=== PATIENT | female | born 1935 | race Caucasian/White ===

== ENCOUNTER 2016-11-26 20:59 | Inpatient (IN) | payer MEDICARE ==
[~2016-11-26] VITALS: Ht 167.6 cm; Wt 66.2 kg
[2016-11-26 23:48] LABS: BASOPHILS 0.2 % (0.0-2.0); EOSINOPHILS 0.1 % (0-7); HEMOGLOBIN 13.1 g/dL (12-16); IMMATURE GRANULOCYTES 0.3 % (0-5); LYMPHOCYTES 8.4 % (15-50); MCH 31.6 pg (26.0-34.0); MCHC 33.6 g/dL (31.0-37.0); MEAN PLATELET VOLUME 9.9 fL (7.4-10.4); MONOCYTES 4.7 % (2-11); NEUTROPHILS 86.3 % (40-80); PLATELET COUNT 134 10x3/uL (130-400); RBC 4.15 10x6/uL (4.00-5.40); RDW 13.3 % (11.5-14.5); WBC 11.4 10x3/uL (4.8-10.8)
[2016-11-27] VITALS (13 sets, daily range): BP systolic 110–135; BP diastolic 44–88; BMI 23.6
[2016-11-27 00:01] LABS: APTT 27.9 SECONDS (22.8-39.4); INR 0.97 (0.85-1.17); PROTIME 12.7 SECONDS (11.6-15.0)
[2016-11-27 00:04] LABS: ALBUMIN 3.8 g/dL (3.4-5.0); ANION GAP 12.4 mmol/L (8-16); BILIRUBIN - TOTAL 0.94 mg/dL (0.2-1.3); CALCIUM 8.8 mg/dL (8.5-10.1); CARBON DIOXIDE 25.6 mmol/L (21.0-32.0); CREATININE - SERUM 0.9 mg/dL (0.6-1.3); PROTEIN - SERUM 6.9 g/dL (6.4-8.2)
[2016-11-27] MEDS ORDERED: SYNTHROID25 MCG PO (01:04)
[2016-11-27] MEDS ORDERED: VITAMIN B-1000 MCG/M IM (01:07)
--- NOTE | 2016-11-27 08:13 | NUR ---
AWAKE AND ALERT. ORIENTED X3. C/O SOME NAUSEA AT THIS TIME. GIVEN 4 MG ZOFRAN SLOW IVP FOR SAME. WILL MONITOR. LUNGS ARE CLEAR BILATERALLY, NO COUGH NOTED. SKIN IS INTACT WIHTOUT REDNESS. IV TO RIGHT AC PATENT WITHOUT REDNESS AT INSERTION SITE. REPORTS PAIN UNDER CONTROL AT THIS TIME. DENIES NEEDS.
--- NOTE | 2016-11-27 09:45 | NUR ---
PT REFUSES SCD R/T NEUROPATHY PAIN
--- NOTE | 2016-11-27 09:45 | NUR ---
OFF UNIT VIA BED TO SURGERY.
--- NOTE | 2016-11-27 10:46 | NUR ---
PT REFUSES SCD R/T NEUROPATHY PAIN
--- NOTE | 2016-11-27 11:57 | NUR ---
XRAY DONE AT BEDSIDE
--- NOTE | 2016-11-27 12:20 | NUR ---
RETURNED FROM PACU. A/O X3. NO C/O AT THIS TIME. DRESSING TO RIGHT HIP DRY AND INTACT.
--- NOTE | 2016-11-27 13:40 | NUR ---
VSS. NOT WANTING TO EAT AT THIS TIME. FAMILY AT BEDSIDE.
--- NOTE | 2016-11-27 14:15 | NUR ---
ATE ABOUT HALF OF LUNCH TRAY WITHOUT ANY NAUSEA. VSS. DENIES NEEDS.
--- NOTE | 2016-11-27 16:00 | NUR ---
IV TO RIGHT AC CONTINUES TO BEEP OCCLUDED. LEFT PORT ACCESSED AFTER ONE ATTEMPT USING STERILE TECHNIQUE WITH GOOD BLOOD RETURN.
--- NOTE | 2016-11-27 16:31 | NUR ---
IV TO RIGHT AC D/C WITH CATHETER INTACT.
--- NOTE | 2016-11-27 18:35 | NUR ---
PATIENT UNABLE TO VOID USEING BEDPAN. BLADDER SCANNER SHOWED AERO BUT FLUID COULD BE PALPATED IN BLADDER. 16 F SILVA PLACED USING STERILE TECHNIQUE. CONTENTS OF ENTIRE KIT UTILIZED. 200cc CLEAR YELLOW URINE RETURNED.
--- NOTE | 2016-11-27 20:47 | NUR ---
PT LAYING IN BED NO DISTRESS OBSERVED CALL LIGHT IN REACH SRX2 BED LOW AN LOCKED PT RATES PAIN AT A 2-3 ON SCALE OF 10. DILAUDID FIELD CANE SCALER HELPER INFUSING TO LEFT CHEST PORT WITH NS @ 75 WILL MONITOR
[2016-11-28 02:00] VITALS: BP 122/62
[2016-11-28 05:00] VITALS: BP 111/75
[2016-11-28 05:30] LABS: HEMATOCRIT 31.4 % (36.0-48.0); MCH 30.7 pg (26.0-34.0); MCHC 32.5 g/dL (31.0-37.0); MCV 94.6 fL (80.0-100.0); MEAN PLATELET VOLUME 9.9 fL (7.4-10.4); RBC 3.32 10x6/uL (4.00-5.40); RDW 13.4 % (11.5-14.5)
[2016-11-28 05:40] LABS: HEMOGLOBIN 10.2 g/dL (12-16); WBC 7.7 10x3/uL (4.8-10.8)
--- NOTE | 2016-11-28 07:55 | NUR ---
PT. ASLEEP ON BACK IN BED. AWAKENS EASILY TO VERAL STIMULI. AAOX4. RESP. EVEN AND NONLABORED LUNG SOUNDS CLEAR WITH NO COUGH NOTED. INCENTIVE SPIROMETER TEACHING AND RETURN DEMONSTRATION DONE BY PT. SKIN CLEAN DRY AND INTACT WITH NO REDNESS OR EDEMA PRESENT. LEFT PORT ACCESS CLEAN DRY AND INTACT WITH NO REDNESS AT OR AROUN SITE. ICE PACK PLACED ON RIGHT HIP DRESSING THAT IS CLEAN DRY AND INTACT WITH NO REDNESS OR SWELLING AT OR AROUND SITE. BED IN LOWEST SITTING WITH SR X 2 AND CALL LIGHT WITHIN REACH. PT. DENIES ANY NEEDS AT THIS TIME.
[2016-11-28 08:52] VITALS: BP 107/61
--- NOTE | 2016-11-28 10:22 | NUR ---
Rehab Prescreening Consult recieved and the chart has been recviewed. She is a good rehab candidate, but has not had any therapy yet. Rehab will follow her progress. Carmen Vines RN Clinical Liaison, Rehab
[2016-11-28 12:32] VITALS: BP 131/69
[2016-11-28 14:30] VITALS: Ht 167.6 cm; Wt 66.2 kg
--- NOTE | 2016-11-28 14:37 | NUR ---
All information faxed to [facility] for inpatient rehab authorization. Ref# [id number] Carmen Vines RN CL
[2016-11-28 15:32] VITALS: BP 125/78
--- NOTE | 2016-11-28 20:15 | NUR ---
LYING IN BED AWAKE, ASSESSMENT COMPLETED, NO ACUTE DISTRESS NOTED, DENIES PAIN OR NEEDS,CONTINUES TO REFUSE SCD'S , SR'S UP X2, CL IN REACH, WILL MONITOR
[2016-11-28 21:00] VITALS: BP 117/60
--- NOTE | 2016-11-28 21:14 | NUR ---
MEDS GIVEN PER MAR, EARL WELL, DENIES NEEDS, CL IN REACH
--- NOTE | 2016-11-28 23:50 | NUR ---
PEPCID AND TYLENOL GIVEN PER MAR, EARL WELL, DENIES NEEDS, SR'S UP, CL IN REACH
[2016-11-29 01:00] VITALS: BP 124/66
[2016-11-29 05:00] VITALS: BP 129/71
[2016-11-29 05:35] LABS: HEMATOCRIT 29.2 % (36.0-48.0); HEMOGLOBIN 9.6 g/dL (12-16); MCHC 32.9 g/dL (31.0-37.0); MCV 94.2 fL (80.0-100.0); MEAN PLATELET VOLUME 10.1 fL (7.4-10.4); RBC 3.1 10x6/uL (4.00-5.40); RDW 13.7 % (11.5-14.5); WBC 5.9 10x3/uL (4.8-10.8)
--- NOTE | 2016-11-29 07:40 | NUR ---
AWAKE AND ALERT AT THIS TIME. DRESSING TO RIGHT HIP C/D/I. INSTRUCTED PT ON USE OF INCENTIVE SPIROMETER AND PT DEMONSTRATED UNDERSTANDING WITH 1,000ML OF INSPIRATORY VOLUME. PROVIDED WITH FRESH ICE WATER. PT REFUSES SCD'S. BED ALARM ON AND SRX2 WITH BED IN LOWEST POSITION AND LOCKED. ASSESSMENT PERFORMED PER FLOWSHEET. CALL LIGHT IN REACH, WILL CONTINUE WITH PLAN OF CARE.
[2016-11-29] MEDS ORDERED: HYDROCODONE-APA1 TAB PO (08:23)
[2016-11-29] MEDS ORDERED: ONDANSETRON4 MG/2 M3 PO (08:23)
[2016-11-29 08:33] VITALS: BP 130/72
--- NOTE | 2016-11-29 10:33 | NUR ---
CM REASSESSMENT NOTE: PATIENT HAS BEEN ACCEPTED TO [facility] IN [facility] AND WILL BE IN A SKILLED BED. PATIENT WILL TRANSPORT BY AMBULANCE. FAMILY (SISTER) HAS BEEN NOTIFIED.
--- NOTE | 2016-11-29 11:25 | NUR ---
SCHEDULED TYLENOL ADMINISTERED AT THIS TIME. LEFT CHEST PORT SALINE LOCKED PER ORDER. SILVA CATHETER D/C WITH CATH TIP INTACT. PT TOLERATED WITHOUT COMPLAINTS. BED ALARM ON, CALL LIGHT IN REACH. WILL CONTINUE WITH PLAN OF CARE.
[2016-11-29 12:08] VITALS: BP 132/76
--- NOTE | 2016-11-29 13:15 | NUR ---
VOIDED 350ML IN THE BEDSIDE COMMODE WITHOUT DIFFICULTY AT THIS TIME.
--- NOTE | 2016-11-29 14:20 | NUR ---
REPORT CALLED TO WILLOW COLÓN AT [facility], . LEFT CHEST PORT DE-ACCESSED AND DRESSING TO RIGHT HIP CHANGED IN STERILE FASHION AND NEW AQUACEL AG DRESSING APPLIED. PT DENIES QUESTIONS OR CONCERNS. WILL CONTINUE TO MONITOR UNTIL PT US PICKED UP BY EMS.
[2016-11-29 15:17] VITALS: BP 119/71
--- NOTE | 2016-11-29 15:30 | NUR ---
D/C VIA EMS AT THIS TIME.
--- NOTE | 2016-12-06 12:19 | OP ---
PATIENT NAME: CRYSTAL LOWRY MEDICAL RECORD: [id number] :37 LOCATION:[id number] ADMISSION DATE:11/26/16 SURGEON: AL BERMUDEZ MD DATE OF OPERATION: 11/26/2016 PREOPERATIVE DIAGNOSIS: Right femoral neck fracture. POSTOPERATIVE DIAGNOSIS: Right femoral neck fracture. PROCEDURE PERFORMED: Right hip hemiarthroplasty. SURGEON: Ye Bermudez MD ANESTHESIA: General with a block for postop pain. CONDITION: The patient tolerated the procedure well, was transferred to the recovery room in stable condition at the termination of the procedure. INDICATIONS: This is a 81-year-old female that fell yesterday. She had pain ____. When she was able to do this, she called, was found, delivered to the hospital by EMS and noted to have a femoral neck fracture. We discussed the options with her. She wanted to go ahead and have this surgically repaired. We discussed risks, benefits, and alternatives. She understood and wished to proceed. OPERATIVE REPORT: The patient was taken to the operating room, placed in supine position. A general anesthesia was obtained. She did have a block placed preoperatively. Once this was accomplished, she was placed in a lateral position with her right hip up. Procedure was begun by prepping and draping her in the standard fashion. She then had a secondary ChloraPrep and Ioban dressing placement. I followed this by lateral incision. This was taken down to the IT band. The IT band was split. Charnley retractor was placed. I took off the anterior portion of the gluteus medius and the capsule as a unit. The femoral neck had a cleanup cut. This was accomplished and the remnants of the femoral head were removed from the cup. These were measured for size and found to be a 46. After this, I copiously irrigated the acetabulum then took the leg off the side of the bed into the bag. I did a cookie cutter and canal finder followed by broaching up to a 13 for the stem. A 13 trial stem was placed with the standard head and neck. X-rays were taken this appeared to be slightly long, not very much, but enough that I went ahead and took this out. I did my final with 13 stem with a -3 head and neck. This felt very stable on the table. The soft tissue tension felt appropriate. I therefore copiously irrigated, then placed 2 JuggerKnot suture anchors ____ gluteus medius and the capsule back as a unit to the trochanter. I then proceeded to irrigated further. I then closed the IT band with a #1 barbed PDS. I then closed with 2-0 Vicryl, then gaby. She was placed in soft dressing, awakened and transferred to the recovery room in stable condition, having tolerated procedure well. TRANSINT:[id number] Voice Confirmation ID: [id number] DOCUMENT ID: [id number] OPERATIVE REPORT [id number] CRYSTAL LOWRY, AL FLOWERS MD at 1219 CC: [id number] DICTATION DATE: 11/27/16 1202 SOCIAL WORKER MASTERS: 11/27/16 1307 DIS IN 11/29/16 [facility] [address] [place] [address]
--- NOTE | 2016-12-23 07:08 | DS ---
PATIENT:CRYSTAL LOWRY :39 MEDICAL RECORD: [id number] DISCHARGE SUMMARY ADMISSION DATE: 11/26/16 DISCHARGE DATE: 11/29/16 DATE OF ADMISSION: 11/26/2016 DATE OF DISCHARGE: 11/29/2016 ADMITTING DIAGNOSIS: Right hip femoral neck fracture. DISCHARGE DIAGNOSIS: Right hip femoral neck fracture. PROCEDURE PERFORMED DURING THE HOSPITALIZATION: Right hip hemiarthroplasty. ADMITTING PHYSICIAN: Ye Walters MD. HISTORY OF PRESENT ILLNESS: This is a 81-year-old who fell, fractured her femoral neck and displaced. She was taken to the operating room where she underwent a hemiarthroplasty. She did quite well with this, we were able to at least get her up into a chair, start some initial ambulation or some initial therapy attempts. It was felt by the she can be discharged back to the [facility]. She ____ going to continue on some anticoagulation therapy, continue on ____ at least mobilize her even with just bed to chair and see us back in the office in 2-3 weeks. TRANSINT:[id number] Voice Confirmation ID: [id number] DOCUMENT ID: [id number] AL WALTERS MD at 0708 CC: [id number] DICTATION DATE: 12/20/16 170 [employer] PRESIDENT PHARMACY: 12/21/16 1133 DIS IN 11/29/16 [facility] [address] [place] [address]
== END 2016-11-29 15:30 | DRG 470 ==
LOC: D.ER 20:59 → D.MS 23:30
PROVIDERS: Nurse Practitioner Acute Care; ADMIT Orthopaedic Surgery Sports Medicine
PROC: 0SRR0JZ Replacement of Right Hip Joint, Femoral Surface with Synthetic Substitute, Open Approach (ICD-10-PCS; principal; 2016-11-26)
DX: S72.001A Fracture of unspecified part of neck of right femur, initial encounter for closed fracture (principal); W19.XXXA Unspecified fall, initial encounter

== ENCOUNTER 2019-02-27 18:54 | Inpatient (IN) | payer MEDICARE ==
[~2019-02-27 18:54] MED LIST: HYDROCODONE-APA1 TAB PO; ONDANSETRON4 MG/2 M3 PO; SYNTHROID25 MCG PO; VITAMIN B-1000 MCG/M IM
[2019-02-27 20:09] LABS: APPEARANCE CLEAR (CLEAR); BILIRUBIN NEGATIVE (NEGATIVE); COLOR YELLOW (YELLOW); GLUCOSE NEGATIVE (NEGATIVE); KETONE SMALL mg/dL (NEGATIVE); NITRITE NEGATIVE (NEGATIVE); PROTEIN NEGATIVE (NEGATIVE); UROBILINOGEN NORMAL (NORMAL)
[2019-02-27 20:33] LABS: BASOPHILS 0.2 % (0-2); EOSINOPHILS 0.6 % (0-7); HEMATOCRIT 39.3 % (36.0-48.0); HEMOGLOBIN 13.5 g/dL (12-16); IMMATURE GRANULOCYTES 0.2 % (0-5); LYMPHOCYTES 16.2 % (15-50); MCH 31.8 pg (26.0-34.0); MCHC 34.4 g/dL (31.0-37.0); MCV 92.7 fL (80.0-100.0); MEAN PLATELET VOLUME 9.5 fL (7.4-10.4); MONOCYTES 6.2 % (2-11); NEUTROPHILS 76.6 % (40-80); RBC 4.24 10x6/uL (4.00-5.40); RDW 13.4 % (11.5-14.5)
[2019-02-27 20:58] LABS: ALBUMIN 3.9 g/dL (3.4-5.0); ANION GAP 11.6 mmol/L (8-16); BILIRUBIN - TOTAL 1.06 mg/dL (0.2-1.3); CARBON DIOXIDE 28.7 mmol/L (21.0-32.0); CREATININE - SERUM 0.9 mg/dL (0.6-1.3); POTASSIUM - SERUM 4.3 mmol/L (3.5-5.1); PROTEIN - SERUM 7.4 g/dL (6.4-8.2)
[2019-02-27 21:05] LABS: PLATELET COUNT 149 10x3/uL (130-400)
[2019-02-27 23:27] VITALS: BP 166/77
--- NOTE | 2019-02-27 23:35 | NUR ---
CEFOXITINE NOT IN OUR PYXIS. CALLED INDUSTRIAL MANUFACTURING TECHNICIAN. WILL GIVE MEDICATION WHEN IT ARRIVES.
[2019-02-28] VITALS (10 sets, daily range): BP systolic 109–145; BP diastolic 48–76; BMI 26.2; BMI 26.1
--- NOTE | 2019-02-28 00:50 | NUR ---
PT ARRIVED TO THE FLOOR. ALERT AND ORIENTED. NO SIGNS OF DISTRESS. BREATHING EVEN AND ULABORED. NG TUBE LT NARE LOW SUCTION. WILL CONTINUE PLAN OF CARE. CALL LIGHT IN REACH.
[2019-02-28 05:06] LABS: BASOPHILS 0.1 % (0-2); EOSINOPHILS 0.3 % (0-7); HEMATOCRIT 37.3 % (36.0-48.0); HEMOGLOBIN 12.7 g/dL (12-16); IMMATURE GRANULOCYTES 0.3 % (0-5); LYMPHOCYTES 14.8 % (15-50); MCH 31.5 pg (26.0-34.0); MCV 92.6 fL (80.0-100.0); MEAN PLATELET VOLUME 9.7 fL (7.4-10.4); MONOCYTES 3.6 % (2-11); NEUTROPHILS 80.9 % (40-80); PLATELET COUNT 148 10x3/uL (130-400); RBC 4.03 10x6/uL (4.00-5.40); RDW 13.5 % (11.5-14.5); WBC 7.6 10x3/uL (4.8-10.8)
[2019-02-28 05:36] LABS: ALBUMIN 3.4 g/dL (3.4-5.0); ANION GAP 13.1 mmol/L (8-16); BILIRUBIN - TOTAL 0.98 mg/dL (0.2-1.3); CALCIUM 8.5 mg/dL (8.5-10.1); CARBON DIOXIDE 25.4 mmol/L (21.0-32.0); POTASSIUM - SERUM 4.5 mmol/L (3.5-5.1); PROTEIN - SERUM 6.3 g/dL (6.4-8.2)
--- NOTE | 2019-02-28 07:58 | NUR ---
PT IS RESTING IN BED WITH EYES CLOSED. RESPIRATIONS ARE EVEN AND UNLABORED. NG TUBE TO LEFT NARE SET TO LOW INTERMITTENT SUCTION. NG TUBE SECURED TO LEFT NARE. DARK BROWN FLUID NOTED IN NG TUBE COLLECTION CANISTER. PT DENIES PRESENCE OF NAUSEA/VOMITING AT THIS TIME. PT BS ACITVE X 4 QUADRANTS. PT REPORTS THAT SHE HAS PASSED "A LITTLE BIT" OF GAS. PT DENIES FURTHER NEEDS AT THIS TIME. BED IS IN THE LOWEST POSITION. CALL LIGHT AND BEDSIDE TABLE ARE WITHIN REACH. SIDE RAILS X 2. WILL CONT TO MONITOR.
--- NOTE | 2019-02-28 09:25 | NUR ---
PT C/O CHEST PAIN. PT DENIES PRESENCE OF SOB. PT DENIES PRESENCE OF NAUSEA. MADHURI MATOS NOTIFIED. TELEPHONE ORDERS RECD ARE CARDIAC ENZYMES AND EKG. WILL PLACE ORDERS. WILL CONT TO MONITOR PT CLOSELY.
--- NOTE | 2019-02-28 10:00 | NUR ---
PT REPORTS CHEST PAIN HAS SUBSIDED AND REPORTS ABDOMINAL DISCOMFORT. EKG IN PT CHART. PT DENIES FURTHER NEEDS. WILL CONT TO MONITOR.
--- NOTE | 2019-02-28 10:35 | NUR ---
CONSENTS SIGNED BY PT FOR LAP HERNIA REPAIR. PT DENIES FURTHER QUESTIONS AND/OR CONCERNS AT THIS TIME. SIGNED CONSENTS PLACED IN PT CHART.
--- NOTE | 2019-02-28 11:30 | NUR ---
PT IS RESTING IN BED WITH EYES CLOSED. RESPIRATIONS ARE EVEN AND UNLABORED. FAMILY MEMBER AT BEDSIDE. BED IS IN THE LOWEST POSITION. CALL LIGHT AND BEDSIDE TABLE ARE WITHIN REACH. SIDE RAILS X2. WILL CONT TO MONITOR.
[2019-02-28 12:09] LABS: CKMB 2.1 U/L (0.0-3.6); CREATINE KINASE 123 UL (21-215)
[2019-02-28 12:17] LABS: TROPONIN-I < 0.017 ng/mL (0.000-0.060)
--- NOTE | 2019-02-28 13:04 | NUR ---
NG TUBE FELL OUT OF PT LEFT NARE WHILE AMBULATING FROM BEDSIDE COMMODE TO BED.
--- NOTE | 2019-02-28 13:22 | NUR ---
16 FR NG TUBE INSERTED TO LEFT NARE. PT TOLERATED WELL. ORDER PLACED FOR PLACEMENT CHECK. WILL WAIT FOR VERIFICATION.
--- NOTE | 2019-02-28 15:59 | NUR ---
PRE OP MEDS GIVEN PER ORDER. SEE EMAR. PT TRANSPORTED OUT OF ROOM FOR PROCEDURE VIA BED BY HOSPITAL STAFF.
--- NOTE | 2019-02-28 18:06 | NUR ---
PT RETURNS TO ROOM VIA BED. PT IS SLEEPY BUT IS AROUSABLE WITH VERBAL STIMULATION. FAMILY IS AT BEDSIDE. VSS. SEE FLOWSHEET. LAP SITES X 4. 3 LAP SITES TO RIGHT ABDOMEN 1 LAP SITE TO LLQ. DRESSINGS ARE C/D/I. BED IS IN THE LOWEST POSITION. CALL LIGHT AND BEDSIDE TABLE ARE WITHIN REACH. SIDE RAILS X 2. WILL CONT TO MONITOR.
[2019-03-01 03:05] VITALS: BP 116/62
--- NOTE | 2019-03-01 03:41 | NUR ---
I have reviewed this patient and I concur with the Shift Assessment completed by the Licensed Practical Nurse today this shift.
[2019-03-01 06:13] VITALS: BP 125/59; BP 173/74
[2019-03-01 07:17] LABS: BASOPHILS 0.1 % (0-2); EOSINOPHILS 0.7 % (0-7); HEMATOCRIT 35.1 % (36.0-48.0); HEMOGLOBIN 11.7 g/dL (12-16); IMMATURE GRANULOCYTES 0.1 % (0-5); LYMPHOCYTES 18.2 % (15-50); MCH 31.4 pg (26.0-34.0); MCHC 33.3 g/dL (31.0-37.0); MCV 94.1 fL (80.0-100.0); MEAN PLATELET VOLUME 9.6 fL (7.4-10.4); MONOCYTES 11.2 % (2-11); NEUTROPHILS 69.7 % (40-80); PLATELET COUNT 145 10x3/uL (130-400); RBC 3.73 10x6/uL (4.00-5.40); RDW 13.6 % (11.5-14.5); WBC 7.2 10x3/uL (4.8-10.8)
--- NOTE | 2019-03-01 07:20 | NUR ---
PATIENT RESTING COMFORTABLY. CONVERSANT. NO COMPLAINTS. ALL NEEDS MET AT THIS TIME.
[2019-03-01 07:31] LABS: ANION GAP 10.4 mmol/L (8-16); CALCIUM 7.8 mg/dL (8.5-10.1); CARBON DIOXIDE 27.5 mmol/L (21.0-32.0); CREATININE - SERUM 1.1 mg/dL (0.6-1.3); MAGNESIUM - SERUM 2.2 mg/dL (1.8-2.4); POTASSIUM - SERUM 3.9 mmol/L (3.5-5.1)
[2019-03-01 09:05] VITALS: BP 128/62
--- NOTE | 2019-03-01 12:00 | MORECARE ---
CASE MANAGEMENT DISCHARGE SUMMARY PATIENT: CRYSTAL LOWRY UNIT: [id number] ADM DATE: 02/27/19 AGE: 83 : 37 SEX: F ROOM/BED: D.2228 AUTHOR: MENA NORMAN PHYSICIAN: REFERRING PHYSICIAN: JAH GONGORA MD DATE OF SERVICE: 03/01/19 Discharge Plan Patient Name: CRYSTAL LOWRY [facility] [facility] 1935 Planned Disposition: Home Anticipated Discharge Date: Discharge Date: Expected LOS: Initial Reviewer: [email or web address] Initial Review Date: 03/01/2019 Generated: 03/01/19 1:00 pm DCPIA - Discharge Planning Initial Assessment Updated by [email or web address]: Roberta Donis on 03/01/19 11:59 am * Is the patient Alert and Oriented? Yes * How many steps to enter\exit or inside your home? 0/2 * PCP Dr. Jamil Hu in [place] * Pharmacy [facility] in [place] * Preadmission Environment Home Alone * ADLs Partial Dependent * Partial ADLs (Assistance needed) Ambulation * Equipment Bedside Commode Rolling Walker Shower Chair * List name and contact numbers for known caregivers / representatives who currently or will assist patient after discharge: [facility] - [phone] * Verbal permission to speak to the caregivers and representatives has been obtained from the patient. Yes * Community resources currently utilized None * Additional services required to return to the preadmission environment? No * Can the patient safely return to the preadmission environment? Yes * Has this patient been hospitalized within the prior 30 days at any hospital? No Patient Name: CRYSTAL LOWYR Page [id number] at 1200 All edits/amendments must be made on the electronic document DICTATION DATE: 03/01/19 1159 [place] GRINDER: LJ 03/01/19 1159 RPT#: [id number] DC DATE: STATUS: ADM IN [facility] [address] [place] [address] END OF REPORT
--- NOTE | 2019-03-01 12:07 | MORECARE ---
CASE MANAGEMENT DISCHARGE SUMMARY PATIENT: CRYSTAL LOWRY UNIT: [id number] ADM DATE: 02/27/19 AGE: 83 : 37 SEX: F ROOM/BED: D.2228 AUTHOR: ESTER,DOC PHYSICIAN: REFERRING PHYSICIAN: JAH GONGORA MD DATE OF SERVICE: 03/01/19 Discharge Plan Patient Name: CRYSTAL LOWRY Facility: [facility]:[place] : 1935 Planned Disposition: Home Anticipated Discharge Date: Discharge Date: Expected LOS: Initial Reviewer: [email or web address] Initial Review Date: 03/01/2019 Generated: 03/01/19 1:06 pm Comments DCP- Discharge Planning Updated by [email or web address]: Roberta Donis on 03/01/19 11:[address] Patient Name: CRYSTAL LOWRY Admission Status: ER Accout number: [id number] Admission Date: 02-27-2019 : 1935 Admission Diagnosis: Attending: JAH GONGORA Current LOS: 2 Anticipated DC Date: Planned Disposition: Home Primary Insurance: [facility] MEDIC[facility] SOLUTIONS Discharge Planning Comments: CM met with patient to complete initial dc planning assessment. CM educated patient on the CM role and verbal consent given by patient to complete assessment. Patient lives at home alone. She states her sister lives next door and helps her a lot. At discharge patient plans to return and feels this is a safe discharge. CM discussed availability of home health, rehab services, and medical equipment. Patient denied known discharge needs at this time. She has had [facility] in the past and has been at [facility] 2 years ago, but she denies need for home health or rehab at this time. Her PT and OT evaluations are pending. CM will continue to follow and will assist as needed with dc plans/needs. Real Property Appraiser: Roberta Donis DCPIA - Discharge Planning Initial Assessment Updated by [email or web address]: Roberta Donis on 03/01/19 11:59 am * Is the patient Alert and Oriented? Yes * How many steps to enter\exit or inside your home? 0/2 * PCP Dr. Jamil Hu in [place] * Pharmacy [facility] in [place] * Preadmission Environment Home Alone * ADLs Partial Dependent * Partial ADLs (Assistance needed) Ambulation * Equipment Bedside Commode Rolling Walker Shower Chair * List name and contact numbers for known caregivers / representatives who currently or will assist patient after discharge: [facility] - [phone] * Verbal permission to speak to the caregivers and representatives has been obtained from the patient. Yes * Community resources currently utilized None * Additional services required to return to the preadmission environment? No * Can the patient safely return to the preadmission environment? Yes * Has this patient been hospitalized within the prior 30 days at any hospital? No Last DP export: 03/01/19 11:00 a Patient Name: CRYSTAL LOWRY Page 26710 at 1207 All edits/amendments must be made on the electronic document DICTATION DATE: 03/01/[address] STRE[address] SUPERINTENDENT: LJ 03/01/191205 RPT#: [id number] DC DATE: STATUS: ADM IN [facility] [address] [place] [address] END OF REPORT
[2019-03-01 12:57] VITALS: BP 121/74
[2019-03-01 17:40] VITALS: BP 114/62
[2019-03-01 20:06] VITALS: BP 121/70
[2019-03-02 00:57] VITALS: BP 110/50
--- NOTE | 2019-03-02 03:01 | NUR ---
I have reviewed this patient and I concur with the Shift Assessment completed by the Licensed Practical Nurse today this shift.
[2019-03-02 06:16] LABS: BASOPHILS 0.1 % (0-2); EOSINOPHILS 1.2 % (0-7); HEMATOCRIT 35.1 % (36.0-48.0); HEMOGLOBIN 11.9 g/dL (12-16); IMMATURE GRANULOCYTES 0.1 % (0-5); LYMPHOCYTES 20.6 % (15-50); MCH 31.7 pg (26.0-34.0); MCHC 33.9 g/dL (31.0-37.0); MCV 93.6 fL (80.0-100.0); MEAN PLATELET VOLUME 9.6 fL (7.4-10.4); MONOCYTES 10.5 % (2-11); NEUTROPHILS 67.5 % (40-80); PLATELET COUNT 144 10x3/uL (130-400); RBC 3.75 10x6/uL (4.00-5.40); RDW 13.7 % (11.5-14.5); WBC 7.3 10x3/uL (4.8-10.8)
[2019-03-02 06:26] LABS: ANION GAP 10.4 mmol/L (8-16); CALCIUM 8.1 mg/dL (8.5-10.1); CARBON DIOXIDE 28.3 mmol/L (21.0-32.0); CREATININE - SERUM 1.2 mg/dL (0.6-1.3); MAGNESIUM - SERUM 2.5 mg/dL (1.8-2.4); POTASSIUM - SERUM 3.7 mmol/L (3.5-5.1)
[2019-03-02 06:27] LABS: PHOSPHOROUS 2.1 mg/dL (2.5-4.9)
[2019-03-02 10:19] VITALS: BP 127/66
[2019-03-02] MEDS ORDERED: HYDROCODON-ACE1 EAC7 PO (11:10)
[2019-03-02] MEDS ORDERED: MIRALAX17 GM PO (11:10)
--- NOTE | 2019-03-02 13:30 | MORECARE ---
CASE MANAGEMENT DISCHARGE SUMMARY PATIENT: CRYSTAL LOWRY UNIT: [id number] ADM DATE: 02/27/19 AGE: 83 : 37 SEX: F ROOM/BED: D.2228 AUTHOR: ESTER,DOC PHYSICIAN: REFERRING PHYSICIAN: JAH GONGORA MD DATE OF SERVICE: 03/02/19 Discharge Plan Patient Name: CRYSTAL LOWRY Facility: [facility]:[place] : 1935 Planned Disposition: Home Anticipated Discharge Date: Discharge Date: Expected LOS: Initial Reviewer: [email or web address] Initial Review Date: 03/01/2019 Generated: 03/02/19 2:29 pm Comments DCP- Discharge Planning Updated by [email or web address]: Vanesa Tatum on 03/02/19 12:[address] LATE ENTRY 1145 CM SPOKE WITH THE PATIENT REGARDING HOME HEALTH SERVICES. SHE HAD DECLINED PREVIOUSLY. SHE STILL FEELS SHE DOES NOT REQUIRE ANT COMMUNITY OR HOME HEALTH SERVICES. CM EXPLAINED HOW TO OBTAIN SERVICES SHOULD SHE CHANGE HER MIND WHEN SHE GETS HOME. DCP- Discharge Planning Updated by [email or web address]: Roberta Donis on 03/01/19 11:[address] Patient Name: CRYSTAL LOWRY Admission Status: ER Accout number: [id number] Admission Date: 02-27-2019 : 1935 Admission Diagnosis: Attending: JAH GONGORA Current LOS: 2 Anticipated DC Date: Planned Disposition: Home Primary Insurance: [facility] MEDICARE SOLUTIONS Discharge Planning Comments: CM met with patient to complete initial dc planning assessment. CM educated patient on the CM role and verbal consent given by patient to complete assessment. Patient lives at home alone. She states her sister lives next door and helps her a lot. At discharge patient plans to return and feels this is a safe discharge. CM discussed availability of home health, rehab services, and medical equipment. Patient denied known discharge needs at this time. She has had [facility] in the past and has been at [facility] 2 years ago, but she denies need for home health or rehab at this time. Her PT and OT evaluations are pending. CM will continue to follow and will assist as needed with dc plans/needs. Riprap Placing Supervisor: Roberta Donis DCPIA - Discharge Planning Initial Assessment Updated by [id number]: Robertalatoya Donis on 03/01/19 11:59 am * Is the patient Alert and Oriented? Yes * How many steps to enter\exit or inside your home? 0/2 * PCP Dr. Jamil Hu in [place] * Pharmacy [facility] in [place] * Preadmission Environment Home Alone * ADLs Partial Dependent * Partial ADLs (Assistance needed) Ambulation * Equipment Bedside Commode Rolling Walker Shower Chair * List name and contact numbers for known caregivers / representatives who currently or will assist patient after discharge: [facility] - [phone] * Verbal permission to speak to the caregivers and representatives has been obtained from the patient. Yes * Community resources currently utilized None * Additional services required to return to the preadmission environment? No * Can the patient safely return to the preadmission environment? Yes * Has this patient been hospitalized within the prior 30 days at any hospital? No Coverage Notice Reviewer: [email or web address] Babatunde Tatum Notice Issued Date-Time: 03/02/2019 11:41 Notice Type: IM Discharge Notice Notice Delivered To: Patient Relationship to Patient: Self Airline Customer Service Agent Name: Delivery Method: HAND - Hand Delivered Kristie Days: Prior Verbal Notification: Recipient Understood Notice: Yes Recipient Signature: Yes Med Rec Note Co-signed by Attending: Coverage Notice Comment: DISCHARGE IMM SERVED. CM HAD EXPLAINED. PATIENT STATED SHE UNDERSTOOD. SHE IS READY FOR DISCHARGE. NO QUESTIONS OR CONCERNS. Last DP export: 03/01/19 11:06 a Patient Name: CRYSTAL LOWRY Page [id number] at 1330 All edits/amendments must be made on the electronic document DICTATION DATE: 03/02/19 1329 MOONER: LJ 03/02/19 1329 RPT#: [id number] DC DATE: STATUS: ADM IN [facility] [address] [place] [address] END OF REPORT
--- NOTE | 2019-03-02 14:24 | NUR ---
IV THERAPY DC'ED FROM LEFT AC WITH TIP INTACT. LEFT CHEST PORT DC'ED WITH 300 ML OF HEP LOCK PER PROTOCOL. DISCHARGE INSTRUCTIONS GIVEN AND PT VERBALIZED UNDERSTANDING
--- NOTE | 2019-03-02 15:28 | MORECARE ---
CASE MANAGEMENT DISCHARGE SUMMARY PATIENT: CRYSTAL LOWRY UNIT: [id number] ADM DATE: 02/27/19 AGE: 83 : 39 SEX: F ROOM/BED: D.2228 AUTHOR: ESTER,DOC PHYSICIAN: REFERRING PHYSICIAN: JAH GONGORA MD DATE OF SERVICE: 03/02/19 Discharge Plan Patient Name: CRYSTAL LOWRY Facility: [facility]:[place] : 1935 Planned Disposition: Home Anticipated Discharge Date: Discharge Date: 03/02/2019 Expected LOS: Initial Reviewer: [email or web address] Initial Review Date: 03/01/2019 Generated: 03/02/19 4:28 pm Comments DCP- Discharge Planning Updated by [email or web address]: Vanesa Tatum on 03/02/19 12:[address] LATE ENTRY 1145 CM SPOKE WITH THE PATIENT REGARDING HOME HEALTH SERVICES. SHE HAD DECLINED PREVIOUSLY. SHE STILL FEELS SHE DOES NOT REQUIRE [facility] OR HOME HEALTH SERVICES. CM EXPLAINED HOW TO OBTAIN SERVICES SHOULD SHE CHANGE HER MIND WHEN SHE GETS HOME. DCP- Discharge Planning Updated by [id number]: Roberta Donis on 03/01/19 11:[address] Patient Name: CRYSTAL LOWRY Admission Status: ER Accout number: [id number] Admission Date: 02-27-2019 : 1935 Admission Diagnosis: Attending: JAH GONGORA Current LOS: 2 Anticipated DC Date: Planned Disposition: Home Primary Insurance: [facility] [employer] Discharge Planning Comments: CM met with patient to complete initial dc planning assessment. CM educated patient on the CM role and verbal consent given by patient to complete assessment. Patient lives at home alone. She states her sister lives next door and helps her a lot. At discharge patient plans to return and feels this is a safe discharge. CM discussed availability of home health, rehab services, and medical equipment. Patient denied known discharge needs at this time. She has had [facility] in the past and has been at [facility] 2 years ago, but she denies need for home health or rehab at this time. Her PT and OT evaluations are pending. CM will continue to follow and will assist as needed with dc plans/needs. Goat Farmer: Roberta Donis DCPIA - Discharge Planning Initial Assessment Updated by [email or web address]: Roberta Donis on 03/01/19 11:59 am * Is the patient Alert and Oriented? Yes * How many steps to enter\exit or inside your home? 0/2 * PCP Dr. Jamil Hu in [place] * [facility] in [place] * Preadmission Environment Home Alone * ADLs Partial Dependent * Partial ADLs (Assistance needed) Ambulation * Equipment Bedside Commode Rolling Walker Shower Chair * List name and contact numbers for known caregivers / representatives who currently or will assist patient after discharge: [facility] - [phone] * Verbal permission to speak to the caregivers and representatives has been obtained from the patient. Yes * Community resources currently utilized None * Additional services required to return to the preadmission environment? No * Can the patient safely return to the preadmission environment? Yes * Has this patient been hospitalized within the prior 30 days at any hospital? No Coverage Notice Reviewer: [id number] - Vanesa Tatum Notice Issued Date-Time: 03/02/2019 11:41 Notice Type: IM Discharge Notice Notice Delivered To: Patient Relationship to Patient: Self User Support Analyst Supervisor Name: Delivery Method: HAND - Hand Delivered Kristie Days: Prior Verbal Notification: Recipient Understood Notice: Yes Recipient Signature: Yes Med Rec Note Co-signed by Attending: Coverage Notice Comment: DISCHARGE IMM SERVED. CM HAD EXPLAINED. PATIENT STATED SHE UNDERSTOOD. SHE IS READY FOR DISCHARGE. NO QUESTIONS OR CONCERNS. Last DP export: 03/02/19 12:29 p Patient Name: CRYSTAL LOWRY Page [id number] at 1528 All edits/amendments must be made on the electronic document DICTATION DATE: 03/02/19 1528 GROUND OPERATIONS CREW MEMBER: LJ 03/02/19 1528 RPT#: [id number] DC DATE:03/02/19 STATUS: DIS IN [facility] [address] [place] [address] END OF REPORT
== END 2019-03-02 14:41 | disposition home or self-care (01) | DRG 355 ==
LOC: D.ER 18:54 → D.MS 23:07
PROVIDERS: Family Medicine; Surgery; ADMIT Internal Medicine Nephrology; ATTEND Internal Medicine Nephrology
PROC: 0WUF4JZ Supplement Abdominal Wall with Synthetic Substitute, Percutaneous Endoscopic Approach (ICD-10-PCS; principal; 2019-02-28 16:48)
DX: K43.6 Other and unspecified ventral hernia with obstruction, without gangrene (principal); I10 Essential (primary) hypertension

== ENCOUNTER 2020-01-29 11:51 | Emergency (ER) | payer MEDICARE ==
[~2020-01-29] VITALS: Ht 167.6 cm; Wt 70.5 kg
[~2020-01-29 11:51] MED LIST changes: +HYDROCODON-ACE1 EAC7 PO; +MIRALAX17 GM PO
[2020-01-29 12:22] VITALS: Ht 167.6 cm; Wt 70.5 kg
[2020-01-29 12:58] LABS: BASOPHILS 0.4 % (0-2); EOSINOPHILS 2.3 % (0-7); HEMOGLOBIN 14.1 g/dL (12-16); IMMATURE GRANULOCYTES 0.2 % (0-5); LYMPHOCYTES 31.5 % (15-50); MCH 31.2 pg (26.0-34.0); MCHC 32.8 g/dL (31.0-37.0); MCV 95.1 fL (80.0-100.0); MEAN PLATELET VOLUME 9.4 fL (7.4-10.4); MONOCYTES 8.4 % (2-11); NEUTROPHILS 57.2 % (40-80); PLATELET COUNT 158 10x3/uL (130-400); RBC 4.52 10x6/uL (4.00-5.40); RDW 13.3 % (11.5-14.5); WBC 5.2 10x3/uL (4.8-10.8)
[2020-01-29 13:11] LABS: ANION GAP 11.6 mmol/L (8-16); CALCIUM 8.8 mg/dL (8.5-10.1); CARBON DIOXIDE 27.4 mmol/L (21.0-32.0); CREATININE - SERUM 1.1 mg/dL (0.6-1.3)
[2020-01-29 13:16] LABS: ALBUMIN 4.1 g/dL (3.4-5.0); BILIRUBIN - TOTAL 1.13 mg/dL (0.2-1.3); PROTEIN - SERUM 7.5 g/dL (6.4-8.2)
[2020-01-29 14:25] LABS: BILIRUBIN NEGATIVE (NEGATIVE); GLUCOSE NEGATIVE (NEGATIVE); KETONE NEGATIVE (NEGATIVE); NITRITE NEGATIVE (NEGATIVE); UROBILINOGEN NORMAL (NORMAL)
[2020-01-29] MEDS ORDERED: CHRONULAC30 ML PO (16:11)
[2020-01-29 16:28] VITALS: BP 133/71
== END 2020-01-29 16:30 | disposition home or self-care (01) ==
LOC: D.ER 11:51
PROVIDERS: Family Medicine
DX: K59.00 Constipation, unspecified (principal); K43.2 Incisional hernia without obstruction or gangrene

== ENCOUNTER 2021-01-25 00:18 | Emergency (ER) | payer MEDICARE ==
[~2021-01-25 00:18] MED LIST changes: +ASPIRIN325 MG PO; +ASPIRIN81 MG PO; +CHRONULAC30 ML PO
[2021-01-25 00:29] VITALS: Ht 167.6 cm
[2021-01-25] MEDS ORDERED: PLAVIX75 MG PO (00:58)
[2021-01-25 01:16] LABS: BASOPHILS 0.3 % (0-2); EOSINOPHILS 1.2 % (0-7); HEMATOCRIT 39.7 % (36.0-48.0); HEMOGLOBIN 13.3 g/dL (12-16); IMMATURE GRANULOCYTES 0.1 % (0-5); LYMPHOCYTE ABS# 1.37 10x3/uL (1.18-3.74); LYMPHOCYTES 17.9 % (15-50); MCH 31.2 pg (26.0-34.0); MCHC 33.5 g/dL (31.0-37.0); MCV 93.2 fL (80.0-100.0); MEAN PLATELET VOLUME 9.3 fL (7.4-10.4); NEUTROPHIL ABS# 5.55 10x3/uL (1.56-6.13); NEUTROPHILS 72.5 % (40-80); PLATELET COUNT 154 10x3/uL (130-400); RBC 4.26 10x6/uL (4.00-5.40); RDW 13.4 % (11.5-14.5); WBC 7.7 10x3/uL (4.8-10.8)
[2021-01-25 01:19] VITALS: BP 133/74
[2021-01-25 01:29] LABS: CALC OSMOLALITY 284 mosm/kg (275-300); CALCIUM 8.6 mg/dL (8.5-10.1); CARBON DIOXIDE 26.4 mmol/L (21.0-32.0); CHLORIDE - SERUM 106 mmol/L (98-107); GLUCOSE 107 mg/dL (74-106); POTASSIUM - SERUM 4.1 mmol/L (3.5-5.1); SODIUM 142 mmol/L (136-145); UREA NITROGEN 17 mg/dL (7-18); eGFR NON AFRICAN AMERICAN 56 mL/min (90-120)
[2021-01-25 01:34] LABS: APTT 29.4 SECONDS (22.8-39.4); PROTIME 12.2 SECONDS (11.6-15.0)
[2021-01-25 01:45] LABS: ALBUMIN 3.6 g/dL (3.4-5.0); ALKALINE PHOSPHATASE 94 U/L (30-120); ALT (SGPT) 18 U/L (10-68); BILIRUBIN - TOTAL 0.85 mg/dL (0.2-1.3); CKMB 1.7 U/L (0.0-3.6); CREATINE KINASE 117 UL (21-215); MAGNESIUM - SERUM 2.1 mg/dL (1.8-2.4); PROTEIN - SERUM 6.9 g/dL (6.4-8.2); THYROID STIMULATING HORMONE 5.18 uIU/mL (0.36-3.74); TROPONIN-I < 0.017 ng/mL (0.000-0.060)
== END 2021-01-25 02:42 | disposition home or self-care (01) ==
LOC: D.ER 00:18
PROVIDERS: Emergency Medicine
DX: G45.9 Transient cerebral ischemic attack, unspecified (principal)

== ENCOUNTER → 2021-03-25 17:43 | Outpatient (CLI) | payer MEDICARE ==
[~2021-03-25 17:43] MED LIST changes: +PLAVIX75 MG PO
[2021-03-25 19:36] LABS: BASOPHILS 0.8 % (0-2); EOSINOPHILS 2.5 % (0-7); HEMATOCRIT 41.7 % (36.0-48.0); HEMOGLOBIN 13.8 g/dL (12-16); MCH 31.1 pg (26.0-34.0); MCHC 33.1 g/dL (31.0-37.0); MCV 93.8 fL (80.0-100.0); MEAN PLATELET VOLUME 7.7 fL (7.4-10.4); MONOCYTES 9.5 % (2-11); NEUTROPHILS 54.2 % (40-80); PLATELET COUNT 203 10x3/uL (130-400); RBC 4.45 10x6/uL (4.00-5.40); RDW 14.3 % (11.5-14.5); WBC 6.1 10x3/uL (4.8-10.8)
[2021-03-25 21:00] LABS: ERYTHROCYTE SEDIMENTATION RATE 6 mm/hr (0-30)
== END | disposition home or self-care (01) ==
LOC: D.LABREF 17:43
PROVIDERS: ATTEND Nurse Practitioner Family
DX: M25.551 Pain in right hip (principal); Z96.641 Presence of right artificial hip joint

== ENCOUNTER → 2021-04-01 09:31 | Outpatient (CLI) | payer MEDICARE | END | disposition home or self-care (01) | LOC: D.NM 09:31 | PROVIDERS: ATTEND Nurse Practitioner Family | DX: Z96.641 Presence of right artificial hip joint (principal) ==